=== PATIENT | male | born 1975 | race Caucasian/White ===

== ENCOUNTER 2018-07-17 10:11 | Emergency (ER) | payer SELFPAY ==
[~2018-07-17] VITALS: Ht 180.3 cm; Wt 81.6 kg
[2018-07-17 10:27] VITALS: BP 152/99
[2018-07-17] MEDS ORDERED: IBUPROFEN 400 MG TABLET. PO ONE (10:30)
[2018-07-17] MEDS ORDERED: traMADol 50 MG TABLET PO ONE (10:30)
--- NOTE | 2018-07-17 10:32 | PHYS DOC ---
Past Medical History Past Medical History: No Pertinent History Smoking: Cigarettes, Less than 1pk/day Alcohol Use: Heavy Drug Use: None Adult General Chief Complaint Chief Complaint: HAND PROBLEM HPI HPI Patient is a 42 year old male who presents with left, nondominant, third finger pain after a fall out of a tree at work yesterday at approximately 2:00 in the afternoon. Increased pain with movement and decreased active range of motion secondary to pain. There is no numbness. There is swelling. Pain is mild to moderate when holding it still. Moderate to severe when moving. No radiation of the discomfort.[] Review of Systems Review of Systems Constitutional: Denies fever or chills [] Eyes: Denies change in visual acuity, redness, or eye pain [] HENT: Denies nasal congestion or sore throat [] Respiratory: Denies cough or shortness of breath [] Cardiovascular: No chest pain or palpitations[] GI: Denies abdominal pain, nausea, vomiting, bloody stools or diarrhea [] : Denies dysuria or hematuria [] Musculoskeletal: Denies back pain, see history of present illness[] Integument: Denies rash or skin lesions [] Neurologic: Denies headache, focal weakness or sensory changes [] Endocrine: Denies polyuria or polydipsia [] All other systems were reviewed and found to be within normal limits, except as documented in this note. Current Medications Current Medications Current Medications Medications (Trade) Dose Ordered Sig/Portillo Start Time Stop Time Status Last Admin Dose Admin Ibuprofen (Motrin) 800 mg 1X ONCE 07/17/18 10:30 07/17/18 10:49 DC 07/17/18 10:46 800 MG Tramadol HCl (Ultram) 50 mg 1X ONCE 07/17/18 10:30 07/17/18 10:49 DC 07/17/18 10:46 50 MG Allergies Allergies Allergies Coded Allergies Type Severity Reaction Last Updated Verified No Known Drug Allergies 07/17/18 No Physical Exam Physical Exam Constitutional: Well developed, well nourished, no acute distress, non-toxic appearance. [] HENT: Normocephalic, atraumatic, bilateral external ears normal, oropharynx moist, no oral exudates, nose normal. [] Eyes: PERRLA, EOMI, conjunctiva normal, no discharge. [] Neck: Normal range of motion, no tenderness, supple, no stridor. [] Cardiovascular:Heart rate regular rhythm, no murmur [] Lungs & Thorax: Bilateral breath sounds clear to auscultation [] Abdomen: Bowel sounds normal, soft, no tenderness, no masses, no pulsatile masses. [] Skin: Warm, dry, no erythema, no rash. [] Back: No tenderness, no CVA tenderness. [] Extremities: Left third finger shows some significant edema and bruising. There is pain with axial loading of the proximal phalanx. FDS, FDP, and and extensor mechanisms are all intact but there is decreased active range of motion secondary to pain and swelling. Aside from this finger, there is no tenderness, no cyanosis, no clubbing, ROM intact, no edema. [] Neurologic: Alert and oriented X 3, normal motor function, normal sensory function, no focal deficits noted. [] Psychologic: Affect normal, judgement normal, mood normal. [] Current Patient Data Vital Signs Vital Signs Date Time Temp Pulse Resp B/P (MAP) Pulse Ox O2 Delivery O2 Flow Rate FiO2 07/17/18 10:27 97.7 89 20 152/99 (116) 99 Room Air 97.7 EKG EKG [] Radiology/Procedures Radiology/Procedures Left hand radiograph 07/17/2018 10:29 AM INDICATION: Third finger pain and swelling after fall COMPARISON: None available. TECHNIQUE: 3 views of the left hand are provided. FINDINGS/ IMPRESSION: There is a comminuted fracture involving the mid to distal aspect of the proximal phalanx of the third digit. There is mild displacement of fracture fragments with associated soft tissue swelling. No underlying osseous lesion is identified. There may be subtle extension to the proximal interphalangeal joint. No extension to the metacarpophalangeal joint. Osseous remodeling of the ulnar styloid process may be degenerative versus associated with remote trauma.[] Course & Med Decision Making Course & Med Decision Making Pertinent Labs and Imaging studies reviewed. (See chart for details) ED course: Patient arrived, was placed in bed, and tolerated exam well. He was given medication for pain which significantly improved his discomfort. After the return of the imaging studies, consultation was made with orthopedic surgery who felt that this patient would benefit from further evaluation by a hand specialist on an outpatient basis given that the injury was approximately 21 hours ago. Findings were discussed with the patient who voiced understanding. Reevaluation of the patient again reveals no other injury despite his fall out of a tree. Patient was placed in a splint. He was distal neurovascularly intact after splint application. Patient was discharged in improved condition. Medical decision making: There is no evidence of a open fracture, no evidence of neuro or vascular compromise. There is a fracture present. He is being given point of contact for orthopedic/hand surgery for further evaluation and treatment.[] Dragon Disclaimer Dragon Disclaimer This electronic medical record was generated, in whole or in part, using a voice recognition dictation system. Departure Departure Impression: Primary Impression: Finger fracture, left Disposition: HOME, SELF-CARE Condition: IMPROVED Patient Instructions: Cast or Splint Care, Finger Fracture Additional Instructions: Follow-up with the hand surgery service at . Their phone number is . Call today to set up the appointment for this next week. Let them know that sure images were floated to the cloud from [place]. Keep the splint clean and dry. Return to the ER if worsening pain, numbness, or any other concerns. Scripts Hydrocodone/Apap 5-325 (NORCO 5-325 TABLET) 1 Each Tablet 1-2 EACH PO PRN Q6HRS PRN for SEVERE PAIN, #20 as needed for pain Prov: CHULA PETER DO 07/17/18 Meloxicam (MELOXICAM) 7.5 Mg Tablet 7.5 MG PO DAILY, #20 TAB Prov: CHULA PETER DO 07/17/18 Problem Qualifiers Primary Impression: Finger fracture, left Encounter type: initial encounter Finger: middle finger Fracture type: closed Phalanx: proximal Fracture alignment: displaced Qualified Codes: S62.613A - Displaced fracture of proximal phalanx of left middle finger, initial encounter for closed fracture CHULA PETER DO Jul 17, 2018 10:32
--- NOTE | 2018-07-17 10:43 | RAD ---
Left hand radiograph 07/17/2018 10:29 AM INDICATION: Third finger pain and swelling after fall COMPARISON: None available. TECHNIQUE: 3 views of the left hand are provided. FINDINGS/ IMPRESSION: There is a comminuted fracture involving the mid to distal aspect of the proximal phalanx of the third digit. There is mild displacement of fracture fragments with associated soft tissue swelling. No underlying osseous lesion is identified. There may be subtle extension to the proximal interphalangeal joint. No extension to the metacarpophalangeal joint. Osseous remodeling of the ulnar styloid process may be degenerative versus associated with remote trauma. Electronically signed by: Louise Gunter MD (07/17/2018 10:40 AM) [id number]
[2018-07-17] MEDS ORDERED: MELO7.5T29 PO (11:20)
[2018-07-17] MEDS ORDERED: HYDR-3164 PO (11:20)
== END 2018-07-17 11:28 | disposition home or self-care (01) ==
LOC: ER 10:11
DX: S62.613A Displaced fracture of proximal phalanx of left middle finger, initial encounter for closed fracture (principal); F17.210 Nicotine dependence, cigarettes, uncomplicated; F10.20 Alcohol dependence, uncomplicated; Y90.9 Presence of alcohol in blood, level not specified
CPT/HCPCS: 29130; 73130; 99284

== ENCOUNTER 2018-09-12 14:01 | Inpatient (IN) | payer SELFPAY ==
[~2018-09-12] VITALS: Ht 175.3 cm; Wt 71.5 kg
[~2018-09-12 14:01] MED LIST: HYDR-3164 PO; MELO7.5T29 PO
[2018-09-12] MEDS ORDERED: FAMOTIDINE 20 MG/2 ML VIAL IVP ONE (14:30)
[2018-09-12 14:44] LABS: BASO # 0.1 x10^3/uL (0.0-0.2); BASO % 3 % (0-3); EOS # 0.2 x10^3/uL (0.0-0.7); EOS % 5 % (0-3); HEMATOCRIT 44.4 % (39.0-53.0); HEMOGLOBIN 15.7 g/dL (13.0-17.5); LYMPH # 2.2 x10^3/uL (1.0-4.8); LYMPH % 45 % (24-48); MEAN CORPUSCULAR HEMOGLOBIN 36 pg (25-35); MEAN CORPUSCULAR HGB CONC 35 g/dL (31-37); MEAN CORPUSCULAR VOLUME 101 fL (79-100); MONO # 0.5 x10^3/uL (0.0-1.1); MONO % 11 % (0-9); NEUT # 1.9 x10^3uL (1.8-7.7); NEUT % 37 % (31-73); PLATELET COUNT 247 x10^3/uL (140-400); RED CELL DISTRIBUTION WIDTH 13.9 % (11.5-14.5)
[2018-09-12] MEDS ORDERED: MULTIVIT INFUSN,ADULT 4,VIT K 10 ML, THIAMINE INJ 100 MG, FOLIC ACID INJ 1 MG in IV NOR... IV ONE (14:45)
[2018-09-12] MEDS ORDERED: levETIRAcetam 1,000 MG in IV DEXTROSE 5% 100ML 100 ML IV ONE (14:45)
[2018-09-12 14:54] LABS: CALCIUM 8.3 mg/dL (8.5-10.1); CREATININE 0.8 mg/dL (0.7-1.3); GFR 106.5; POTASSIUM 3.9 mmol/L (3.5-5.1)
[2018-09-12 15:01] LABS: ALBUMIN 3.9 g/dL (3.4-5.0); MAGNESIUM 1.8 mg/dL (1.8-2.4); TOTAL BILIRUBIN 0.2 mg/dL (0.2-1.0)
--- NOTE | 2018-09-12 15:05 | RAD ---
CT HEAD WO CONTRAST Clinical indications: Seizure. COMPARISON: None available. Technique: Noncontrast axial cross sectional scanning of the head was performed. PQRS compliance Statement One or more of the following individualized dose reduction techniques were utilized for this study: 1. Automated exposure control 2. Adjustment of the mA and/or kV according to patient size 3. Use of iterative reconstruction technique Findings: No acute intracranial hemorrhage or midline shift or mass-effect or hydrocephalus or extra-axial fluid collection is seen. No focal hypodense area or sulci effacement is seen to indicate an acute infarct or edema radiographically. No skull fracture or pneumocephalus is seen. No opacification of the mastoid sinuses or the paranasal sinuses is seen. Deformity of the lateral wall of the right maxillary sinus and the right zygomatic arch is seen consistent with fractures. These appear old. There are fractures of the nasal bone on both sides and nasal septal deviation. Clinical correlation is recommended. The maxillary sinuses are not completely seen in this study. IMPRESSION: No acute intracranial abnormality is seen. Trauma of the face as discussed above. Correlation with clinical history and findings is needed. Electronically signed by: Brandon Keene MD (09/12/2018 3:02 PM) [facility]
[2018-09-12 15:23] LABS: BILIRUBIN,URINE NEGATIVE (NEG); CLARITY,URINE CLEAR; COLOR,URINE YELLOW; NITRITE,URINE NEGATIVE (NEG); PROTEIN,URINE NEGATIVE (NEG-TRACE); UROBILINOGEN,URINE 0.2 mg/dL (0.2 mg/dL)
[2018-09-12 15:30] LABS: AMPHETAMINE/METHAMPHETAMINE NEG (NEG); BARBITURATES NEG (NEG); BENZODIAZEPINES NEG (NEG); CANNABINOIDS NEG (NEG); COCAINE NEG (NEG); METHADONE NEG (NEG); OPIATES NEG (NEG); PHENCYCLIDINE NEG (NEG)
[2018-09-12 15:31] LABS: BACTERIA,URINE 0 /HPF (0-FEW); RBC,URINE 0 /HPF (0-2); WBC,URINE 0 /HPF (0-4)
--- NOTE | 2018-09-12 15:33 | PHYS DOC ---
Past Medical History Past Medical History: No Pertinent History Additional Past Surgical Histo: BILAT ANKLE FRACTURE REPAIR Alcohol Use: Heavy Drug Use: None Adult General Chief Complaint Chief Complaint: ALCOHOL INTOXICATION HPI HPI Patient is a 42 year old male with long-standing history of alcohol abuse who presents with binge alcohol drinking in the past 3 days with ataxia and 2 witnessed seizure episodes per patient's mother. First episode happened at home as tonic-clonic lasting less than 5 minutes. A second episode happened in the car on the way to an AA meeting this afternoon. Patient does not recall episodes. Denies hitting his head, tongue laceration, incontinence. Patient denies polysubstance. Additional history obtained from the patient's mother. Patient's mother states the patient only has seizure episodes when highly intoxicated. She denies history of withdrawal seizures? No reported HI or SI.[] Review of Systems Review of Systems ROS as per HPI. Poor patient cooperation due to alcohol use. Current Medications Current Medications Current Medications Medications (Trade) Dose Ordered Sig/Portillo Start Time Stop Time Status Last Admin Dose Admin Famotidine (Pepcid Vial) 20 mg 1X ONCE 09/12/18 14:30 09/12/18 14:32 DC Allergies Allergies Allergies Coded Allergies Type Severity Reaction Last Updated Verified No Known Drug Allergies 07/17/18 No Physical Exam Physical Exam Constitutional: Well developed, well nourished, no acute distress, non-toxic a ppearance. [] HENT: Normocephalic, atraumatic, bilateral external ears normal, oropharynx moist, no oral exudates, nose normal. [] Eyes: PERRLA, EOMI, conjunctiva, injected, no discharge. [] Neck: Normal range of motion, no tenderness, supple, no stridor. [] Cardiovascular:Heart rate regular rhythm, no murmur [] Lungs & Thorax: Bilateral breath sounds clear to auscultation [] Abdomen: Bowel sounds normal, soft, no tenderness. [] Skin: Warm, dry, no erythema, no rash. [] Back: No tenderness, no CVA tenderness. [] Extremities: No tenderness. [] Neurologic: Alert and oriented X 3, dysarthria, normal motor function, normal sensory function, limn taxi. [] Psychologic: Affect normal, judgement normal, No HI/SI. Current Patient Data Lab Values Laboratory Tests Test 09/12/18 14:30 White Blood Count 5.0 x10^3/uL (4.0-11.0) Red Blood Count 4.40 x10^6/uL (4.30-5.70) Hemoglobin 15.7 g/dL (13.0-17.5) Hematocrit 44.4 % (39.0-53.0) Mean Corpuscular Volume 101 fL (79-100) H Mean Corpuscular Hemoglobin 36 pg (25-35) H Mean Corpuscular Hemoglobin Concent 35 g/dL (31-37) Red Cell Distribution Width 13.9 % (11.5-14.5) Platelet Count 247 x10^3/uL (140-400) Neutrophils (%) (Auto) 37 % (31-73) Lymphocytes (%) (Auto) 45 % (24-48) Monocytes (%) (Auto) 11 % (0-9) H Eosinophils (%) (Auto) 5 % (0-3) H Basophils (%) (Auto) 3 % (0-3) Neutrophils # (Auto) 1.9 x10^3uL (1.8-7.7) Lymphocytes # (Auto) 2.2 x10^3/uL (1.0-4.8) Monocytes # (Auto) 0.5 x10^3/uL (0.0-1.1) Eosinophils # (Auto) 0.2 x10^3/uL (0.0-0.7) Basophils # (Auto) 0.1 x10^3/uL (0.0-0.2) Sodium Level 144 mmol/L (136-145) Potassium Level 3.9 mmol/L (3.5-5.1) Chloride Level 105 mmol/L (98-107) Carbon Dioxide Level 25 mmol/L (21-32) Anion Gap 14 (6-14) Blood Urea Nitrogen 6 mg/dL (8-26) L Creatinine 0.8 mg/dL (0.7-1.3) Estimated GFR (Cockcroft-Gault) 106.5 BUN/Creatinine Ratio 8 (6-20) Glucose Level 104 mg/dL (70-99) H Calcium Level 8.3 mg/dL (8.5-10.1) L Magnesium Level 1.8 mg/dL (1.8-2.4) Total Bilirubin 0.2 mg/dL (0.2-1.0) Aspartate Amino Transferase (AST) 80 U/L (15-37) H Alanine Aminotransferase (ALT) 84 U/L (16-63) H Alkaline Phosphatase 108 U/L (46-116) Troponin I Quantitative < 0.017 ng/mL (0.000-0.055) Total Protein 8.0 g/dL (6.4-8.2) Albumin 3.9 g/dL (3.4-5.0) Albumin/Globulin Ratio 1.0 (1.0-1.7) Ethyl Alcohol Level 490 mg/dL (0-10) *H Laboratory Tests 09/12/18 14:30 Laboratory Tests 09/12/18 14:30 EKG EKG [EKG: reviewed ] Radiology/Procedures Radiology/Procedures CT head: NAD per radiology report[] Course & Med Decision Making Course & Med Decision Making Pertinent Labs and Imaging studies reviewed. (See chart for details) [Eliecer rogers Keppra given. Patient will be admitted to the hospitalist for further evaluation and tx. Courtesy orders provided. ] Dragon Disclaimer Dragon Disclaimer This electronic medical record was generated, in whole or in part, using a voice recognition dictation system. Departure Departure Impression: Primary Impression: Seizure Additional Impression: Alcohol abuse Disposition: 01 HOME, SELF-CARE Admitting Physician: Sam Brody Condition: Referrals: NO PCP (PCP) Problem Qualifiers MIRANDA JEREZ DO September 12, 2018 15:33
[2018-09-12 16:00] VITALS: BP 132/96
[2018-09-12] MEDS ORDERED: HALOPERIDOL LACTATE 5 MG/ML VIAL. IVP PRN (16:45)
[2018-09-12] MEDS ORDERED: cloNIDine HCL 0.1 MG TABLET PO PRN (16:45)
[2018-09-12] MEDS ORDERED: diphenhydrAMINE 50 MG/ML VIAL IVP PRN (16:45)
--- NOTE | 2018-09-12 17:17 | PDOC1 ---
History and Physical Date of Admission: Date of Admission DATE: 09/12/18 TIME: 17:14 Chief Complaint: Problems: (1) Alcohol abuse (2) Seizure Chief Complain: Alcohol intoxication and seizures History of Present Illness: HPI: Patient is a pleasant middle-aged male who was on his way to his AA meeting and had a seizure his alcohol level when he got to the ER was 490 I guess he goes to his AA meetings drunk He admits she's been drinking vodka all day States he is trying to be a better man Rates his symptoms at 9 out of 10 He probably had [address] here I discussed case with ER physician they've loaded with Affectiva organ with patient and observing overnight She we noted the patient is considering leaving AMA Past Medical/Surgical History: PMH/PSH: Past Medical History: No Pertinent History Additional Past Surgical Histo: BILAT ANKLE FRACTURE REPAIR Alcohol Use: Heavy Drug Use: None Allergies: Allergies: Coded Allergies: No Known Drug Allergies (Unverified , 07/17/18) Family History: Family History: Alcoholism Social History: Social Hisoty: He drinks and smokes I suspect he might use some drugs but he doesn't really talk about that much Current Medications: Current Medications Current Medications Famotidine (Pepcid Vial) 20 mg 1X ONCE IVP ; Start 09/12/18 at 14:30; Stop 09/12/18 at 14:32; Status DC Multivitamins 10 ml/Thiamine HCl 100 mg/Folic Acid 1 mg/Sodium Chloride 1,011.2 ml @ 1,000.088 mls/hr 1X ONCE IV Last administered on 09/12/18at 15:36; Start 09/12/18 at 14:45; Stop 09/12/18 at 15:45; Status DC Levetiracetam 1000 mg/Dextrose 110 ml @ 440 mls/hr 1X ONCE IV Last administered on 09/12/18at 15:03; Start 09/12/18 at 14:45; Stop 09/12/18 at 14:59; Status DC Multivitamins 10 ml/Thiamine HCl 100 mg/Folic Acid 1 mg/Sodium Chloride 1,011.2 ml @ 100 mls/ hr DAILY IV ; Start 09/13/18 at 09:00; Stop 09/17/18 at 19:07 Lorazepam (Ativan Inj) 2 mg PRN Q1HR PRN IV For CIWA 8-14; Start 09/12/18 at 16:45 Lorazepam (Ativan Inj) 4 mg PRN Q1HR PRN IV For CIWA 15 or greater; Start 09/12/18 at 16:45 Haloperidol Lactate (Haldol Inj) 5 mg PRN Q4HRS PRN IVP Hallucinatns,Confusn,Delirium; Start 09/12/18 at 16:45 Diphenhydramine HCl (Benadryl) 25 mg PRN Q15MIN PRN IVP EPS symptoms 2'Haldol admin; Start 09/12/18 at 16:45 Clonidine HCl (Catapres) 0.1 mg PRN Q1HR PRN PO SBP > 180 or DBP > 100, MRX3; Start 09/12/18 at 16:45 Active Scripts Active [place] 5-325 Tablet (Acetaminophen/Hydrocodone Bitart) 1 Each Tablet 1-2 Each PO PRN Q6HRS PRN as needed for pain Meloxicam 7.5 Mg Tablet 7.5 Mg PO DAILY ROS: Review of Systems Review of System REVIEW OF SYSTEMS: GENERAL: Denies weakness SKIN: No bruising, hair changes or rashes. EYES: No blurred, double or loss of vision. NOSE AND THROAT: No history of nosebleeds, hoarseness or sore throat. HEART: No history of palpitations, chest pain or shortness of breath on exertion. LUNGS: Denies cough, hemoptysis, wheezing or shortness of breath. GASTROINTESTINAL: Denies changes in appetite, nausea, vomiting, diarrhea or constipation. GENITOURINARY: No history of frequency, urgency, hesitancy or nocturia. NEUROLOGIC: Denies history of numbness, tingling, tremor or weakness. PSYCHIATRIC: No history of panic, anxiety or depression. ENDOCRINE: No history of heat or cold intolerance, polyuria or polydipsia. EXTREMITIES: Denies muscle weakness, joint pain, pain on walking or stiffness. Physical Exam: Vital Signs: Vital Signs Date Time Temp Pulse Resp B/P (MAP) Pulse Ox O2 Delivery O2 Flow Rate FiO2 09/12/18 16:25 Room Air 09/12/18 16:00 98.1 87 17 132/96 (108) 98 98.1 Physcial Exam: GEN.: He is drunk HEENT: Has a couple of abrasions on his face NECK: Supple, no JVD LUNGS: Clear to auscultation without rhonchi or wheezing HEART: RRR, S1, S2 present. Peripheral pulses intact ABDOMEN: Soft, nontender. Positive bowel sounds no organomegaly EXTREMITIES: Without any cyanosis, clubbing, or edema. Pedal pulses intact NEUROLOGIC: He is drunk a pleasant PSYCHIATRIC: He is drunk SKIN: No ulcerations or rashes VASCULAR: Good capillary refill Labs: Labs: Laboratory Tests Test 09/12/18 14:30 09/12/18 15:10 White Blood Count 5.0 x10^3/uL (4.0-11.0) Red Blood Count 4.40 x10^6/uL (4.30-5.70) Hemoglobin 15.7 g/dL (13.0-17.5) Hematocrit 44.4 % (39.0-53.0) Mean Corpuscular Volume 101 fL (79-100) Mean Corpuscular Hemoglobin 36 pg (25-35) Mean Corpuscular Hemoglobin Concent 35 g/dL (31-37) Red Cell Distribution Width 13.9 % (11.5-14.5) Platelet Count 247 x10^3/uL (140-400) Neutrophils (%) (Auto) 37 % (31-73) Lymphocytes (%) (Auto) 45 % (24-48) Monocytes (%) (Auto) 11 % (0-9) Eosinophils (%) (Auto) 5 % (0-3) Basophils (%) (Auto) 3 % (0-3) Neutrophils # (Auto) 1.9 x10^3uL (1.8-7.7) Lymphocytes # (Auto) 2.2 x10^3/uL (1.0-4.8) Monocytes # (Auto) 0.5 x10^3/uL (0.0-1.1) Eosinophils # (Auto) 0.2 x10^3/uL (0.0-0.7) Basophils # (Auto) 0.1 x10^3/uL (0.0-0.2) Sodium Level 144 mmol/L (136-145) Potassium Level 3.9 mmol/L (3.5-5.1) Chloride Level 105 mmol/L (98-107) Carbon Dioxide Level 25 mmol/L (21-32) Anion Gap 14 (6-14) Blood Urea Nitrogen 6 mg/dL (8-26) Creatinine 0.8 mg/dL (0.7-1.3) Estimated GFR (Cockcroft-Gault) 106.5 BUN/Creatinine Ratio 8 (6-20) Glucose Level 104 mg/dL (70-99) Calcium Level 8.3 mg/dL (8.5-10.1) Magnesium Level 1.8 mg/dL (1.8-2.4) Total Bilirubin 0.2 mg/dL (0.2-1.0) Aspartate Amino Transf (AST/SGOT) 80 U/L (15-37) Alanine Aminotransferase (ALT/SGPT) 84 U/L (16-63) Alkaline Phosphatase 108 U/L (46-116) Troponin I Quantitative < 0.017 ng/mL (0.000-0.055) Total Protein 8.0 g/dL (6.4-8.2) Albumin 3.9 g/dL (3.4-5.0) Albumin/Globulin Ratio 1.0 (1.0-1.7) Ethyl Alcohol Level 490 mg/dL (0-10) Urine Collection Type Unknown Urine Color Yellow Urine Clarity Clear Urine pH 6.0 Urine Specific [place] 1.010 Urine Protein Negative mg/dL (NEG-TRACE) Urine Glucose (UA) Negative mg/dL (NEG) Urine Ketones (Stick) Negative mg/dL (NEG) Urine Blood Negative (NEG) Urine Nitrite Negative (NEG) Urine Bilirubin Negative (NEG) Urine Urobilinogen Dipstick 0.2 mg/dL (0.2 mg/dL) Urine Leukocyte Esterase Negative (NEG) Urine RBC 0 /HPF (0-2) Urine WBC 0 /HPF (0-4) Urine Bacteria 0 /HPF (0-FEW) Urine Opiates Screen Neg (NEG) Urine Methadone Screen Neg (NEG) Urine Barbiturates Neg (NEG) Urine Phencyclidine Screen Neg (NEG) Urine Amphetamine/Methamphetamine Neg (NEG) Urine Benzodiazepines Screen Neg (NEG) Urine Cocaine Screen Neg (NEG) Urine Cannabinoids Screen Neg (NEG) Urine Ethyl Alcohol Pos (NEG) Laboratory Tests Test 09/12/18 14:30 09/12/18 15:10 White Blood Count 5.0 x10^3/uL (4.0-11.0) Red Blood Count 4.40 x10^6/uL (4.30-5.70) Hemoglobin 15.7 g/dL (13.0-17.5) Hematocrit 44.4 % (39.0-53.0) Mean Corpuscular Volume 101 fL (79-100) Mean Corpuscular Hemoglobin 36 pg (25-35) Mean Corpuscular Hemoglobin Concent 35 g/dL (31-37) Red Cell Distribution Width 13.9 % (11.5-14.5) Platelet Count 247 x10^3/uL (140-400) Neutrophils (%) (Auto) 37 % (31-73) Lymphocytes (%) (Auto) 45 % (24-48) Monocytes (%) (Auto) 11 % (0-9) Eosinophils (%) (Auto) 5 % (0-3) Basophils (%) (Auto) 3 % (0-3) Neutrophils # (Auto) 1.9 x10^3uL (1.8-7.7) Lymphocytes # (Auto) 2.2 x10^3/uL (1.0-4.8) Monocytes # (Auto) 0.5 x10^3/uL (0.0-1.1) Eosinophils # (Auto) 0.2 x10^3/uL (0.0-0.7) Basophils # (Auto) 0.1 x10^3/uL (0.0-0.2) Sodium Level 144 mmol/L (136-145) Potassium Level 3.9 mmol/L (3.5-5.1) Chloride Level 105 mmol/L (98-107) Carbon Dioxide Level 25 mmol/L (21-32) Anion Gap 14 (6-14) Blood Urea Nitrogen 6 mg/dL (8-26) Creatinine 0.8 mg/dL (0.7-1.3) Estimated GFR (Cockcroft-Gault) 106.5 BUN/Creatinine Ratio 8 (6-20) Glucose Level 104 mg/dL (70-99) Calcium Level 8.3 mg/dL (8.5-10.1) Magnesium Level 1.8 mg/dL (1.8-2.4) Total Bilirubin 0.2 mg/dL (0.2-1.0) Aspartate Amino Transf (AST/SGOT) 80 U/L (15-37) Alanine Aminotransferase (ALT/SGPT) 84 U/L (16-63) Alkaline Phosphatase 108 U/L (46-116) Troponin I Quantitative < 0.017 ng/mL (0.000-0.055) Total Protein 8.0 g/dL (6.4-8.2) Albumin 3.9 g/dL (3.4-5.0) Albumin/Globulin Ratio 1.0 (1.0-1.7) Ethyl Alcohol Level 490 mg/dL (0-10) Urine Collection Type Unknown Urine Color Yellow Urine Clarity Clear Urine pH 6.0 Urine Specific [place] 1.010 Urine Protein Negative mg/dL (NEG-TRACE) Urine Glucose (UA) Negative mg/dL (NEG) Urine Ketones (Stick) Negative mg/dL (NEG) Urine Blood Negative (NEG) Urine Nitrite Negative (NEG) Urine Bilirubin Negative (NEG) Urine Urobilinogen Dipstick 0.2 mg/dL (0.2 mg/dL) Urine Leukocyte Esterase Negative (NEG) Urine RBC 0 /HPF (0-2) Urine WBC 0 /HPF (0-4) Urine Bacteria 0 /HPF (0-FEW) Urine Opiates Screen Neg (NEG) Urine Methadone Screen Neg (NEG) Urine Barbiturates Neg (NEG) Urine Phencyclidine Screen Neg (NEG) Urine Amphetamine/Methamphetamine Neg (NEG) Urine Benzodiazepines Screen Neg (NEG) Urine Cocaine Screen Neg (NEG) Urine Cannabinoids Screen Neg (NEG) Urine Ethyl Alcohol Pos (NEG) Images: Images Chest x-ray normal Assessment/Plan Assessment/Plan Alcohol seizures Plan EtOH call troponin protocol IV Keppra Home meds Cardiac monitoring DVT prophylaxis Full code I told him to quit drinking Prognosis ALLEN Concepcion III DO September 12, 2018 17:16
[2018-09-12 19:15] VITALS: BP 97/54
[2018-09-13] MEDS ORDERED: MULTIVIT INFUSN,ADULT 4,VIT K 10 ML, THIAMINE INJ 100 MG, FOLIC ACID INJ 1 MG in IV NOR... IV SCH (09:00)
--- NOTE | 2018-09-13 14:32 | EKG ---
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
== END 2018-09-13 00:02 | disposition left against medical advice (07) | DRG 101 ==
LOC: ER 14:01 → 6 SOUTH 14:30
PROVIDERS: ADMIT Internal Medicine; ATTEND Internal Medicine
DX: R56.9 Unspecified convulsions (principal); F10.129 Alcohol abuse with intoxication, unspecified; R27.0 Ataxia, unspecified; Z53.21 Procedure and treatment not carried out due to patient leaving prior to being seen by health care provider; Z87.81 Personal history of (healed) traumatic fracture; Z79.899 Other long term (current) drug therapy; Z81.1 Family history of alcohol abuse and dependence
CPT/HCPCS: 36415; 70450; 80053; 80307; 81001; 83735; 84484; 85025; 93005; 96365; 96375; G0480; J1953; J3490; J7030; 99285-25